=== PATIENT | female | born 1975 | race Asian ===

== ENCOUNTER 2019-12-22 16:11 | Emergency (ER) | payer MEDICAID ==
[~2019-12-22] VITALS: Ht 154.9 cm; Wt 50.0 kg
[2019-12-22] MEDS ORDERED: ACETAMINOPHEN 500MG TABLET PO ONE (20:30)
[2019-12-22] MEDS ORDERED: CEPHALEXIN 250MG CAPSULE PO ONE (20:30)
[2019-12-22] MEDS ORDERED: SULFAMETHOXAZOLE/TRIMETHOPRIM 800/160MG TABLET PO ONE (20:30)
[2019-12-22 22:38] VITALS: BP 129/95
== END 2019-12-22 22:40 | disposition home or self-care (01) ==
LOC: ER 16:11
DX: S50.312A Abrasion of left elbow, initial encounter (principal); S50.311A Abrasion of right elbow, initial encounter; S00.81XA Abrasion of other part of head, initial encounter; R51 Headache; Y08.89XA Assault by other specified means, initial encounter; Y93.89 Activity, other specified; Y92.89 Other specified places as the place of occurrence of the external cause; Y99.8 Other external cause status
CPT/HCPCS: 70450; 71101; 99284; Z7610